=== PATIENT | female | born 1990 | race African-American/Black ===

== ENCOUNTER 2021-04-21 13:21 | Emergency (ER) | payer OTHER ==
[~2021-04-21] VITALS: Ht 175.3 cm; Wt 90.9 kg
[2021-04-21 13:29] VITALS: BP 146/74
[2021-04-21] MEDS ORDERED: LIDO700A15 TP ×2 (13:48→14:04)
[2021-04-21] MEDS ORDERED: IBUPROFEN 600 MG TABLET PO ONE (14:00)
[2021-04-21] MEDS ORDERED: LIDOCAINE 5% TRANSDERMAL PATCH TD ONE (14:00)
== END 2021-04-21 14:13 | disposition home or self-care (01) ==
LOC: EMS 13:21
DX: S39.012A Strain of muscle, fascia and tendon of lower back, initial encounter (principal); F12.90 Cannabis use, unspecified, uncomplicated; Z79.899 Other long term (current) drug therapy; X50.0XXA Overexertion from strenuous movement or load, initial encounter; Y93.89 Activity, other specified; Y92.89 Other specified places as the place of occurrence of the external cause; Y99.8 Other external cause status
CPT/HCPCS: 99283

== ENCOUNTER 2021-04-24 12:08 | Emergency (ER) | payer OTHER ==
[~2021-04-24] VITALS: Ht 170.2 cm; Wt 125.0 kg
[~2021-04-24 12:08] MED LIST: LIDO700A15 TP
[2021-04-24] MEDS ORDERED: IBUPROFEN 400 MG TABLET PO ONE (13:45)
[2021-04-24] MEDS ORDERED: ACETAMINOPHEN 325 MG TABLET PO ONE (13:45)
[2021-04-24] MEDS ORDERED: LIDOCAINE 5% TRANSDERMAL PATCH TD ONE (13:45)
[2021-04-24 14:54] VITALS: BP 143/75
[2021-04-24] MEDS ORDERED: DICL100G51 TP (15:08)
[2021-04-24] MEDS ORDERED: NAPR-1025 PO (15:08)
== END 2021-04-24 15:17 | disposition home or self-care (01) ==
LOC: EMS 12:08
DX: S39.012A Strain of muscle, fascia and tendon of lower back, initial encounter (principal); X58.XXXA Exposure to other specified factors, initial encounter; Y93.89 Activity, other specified; Y92.89 Other specified places as the place of occurrence of the external cause; Y99.8 Other external cause status
CPT/HCPCS: 99284; Z7502; Z7610